=== PATIENT | male | born 1995 | race Caucasian/White ===

== ENCOUNTER 2017-10-24 11:09 | Emergency (ER) | payer OTHER ==
[2017-10-24 12:05] LABS: Basophils # (A) 0.1 k/uL (0-0.2); Basophils % (A) 1 %; Eosinophils # (A) 0.1 k/uL (0-0.7); Eosinophils % (A) 1 %; HCT 44.3 % (39.0-53.0); HGB 16.2 gm/dL (13.0-17.5); Hyperchromasia Slight; Lymphocytes # (A) 1.9 k/uL (1.0-4.8); Lymphocytes % (A) 25 %; MCH 30.1 pg (25.0-35.0); MCHC 36.6 g/dL (31.0-37.0); MCV 82.2 fL (80.0-100.0); Mean Platelet Volume 6.8; Monocytes # (A) 0.3 k/uL (0-1.0); Monocytes % (A) 4 %; Neutrophils # (A) 5.1 k/uL (1.3-7.7); Neutrophils % (A) 67 %; Platelet Count 229 k/uL (150-450); RBC 5.39 m/uL (4.30-5.90); RDW 12.8 % (11.5-15.5); WBC 7.5 k/uL (4.0-11.0)
[2017-10-24 12:15] LABS: ALT 21 U/L (21-72); AST 18 U/L (17-59); Albumin 5.1 g/dL (3.5-5.0); Alkaline Phosphatase 80 U/L (38-126); Amylase 59 U/L (30-110); Anion Gap 16 mmol/L; Blood Urea Nitrogen 15 mg/dL (9-20); Calcium 10.1 mg/dL (8.4-10.2); Carbon Dioxide 26 mmol/L (22-30); Chloride 102 mmol/L (98-107); Glucose 89 mg/dL (74-99); Lipase 59 U/L (23-300); Potassium 4.2 mmol/L (3.5-5.1); Sodium 144 mmol/L (137-145); Total Bilirubin 1.6 mg/dL (0.2-1.3); Total Protein 8.2 g/dL (6.3-8.2)
[2017-10-24] MEDS ORDERED: ONDANSETRON 4 MG/2 ML VIAL IVP STA (12:56)
[2017-10-24] MEDS ORDERED: KETOROLAC 30 MG/ML 1 ML VIAL IVP STA (12:56)
[2017-10-24] MEDS ORDERED: SODIUM CHLORIDE 0.9% 1,000 ML IV STA (12:56)
[2017-10-24] MEDS ORDERED: RX INFO: IV CONTRAST WAS GIVEN 1 EACH MISC MISCELLANE PRN (12:56)
[2017-10-24 13:20] VITALS: RESP 18
[2017-10-24 13:28] LABS: Appearance,Urine Clear (Clear); Bilirubin,Urine Negative (Negative); Blood,Urine Negative (Negative); Color,Urine Yellow; Glucose,Urine (UA) Negative (Negative); Ketones,Urine 1+ (Negative); Leukocyte Esterase,Urine Trace (Negative); Mucus,Urine Few /hpf; Nitrite,Urine Negative (Negative); PH, Urine 5.5 (5.0-8.0); Protein,Urine Trace (Negative); RBC,Urine 1 /hpf (0-5); Specific Gravity,Urine 1.029 (1.001-1.035); Squamous Epithelial Cell,Urine 1 /hpf (0-4); WBC,Urine 7 /hpf (0-5)
--- NOTE | 2017-10-24 14:03 | CT ---
EXAMINATION TYPE: CT abdomen pelvis w con DATE OF EXAM: 10/24/2017 COMPARISON: NONE HISTORY: Lower abdominal pain with nausea and vomiting CT DLP: 733 mGycm, Automated Exposure Control for Dose Reduction was Utilized. CONTRAST: CT scan of the abdomen and pelvis is performed without oral but with IV Contrast, patient injected wi th 100 mL of Isovue 300. FINDINGS: LUNG BASES: No significant abnormality is appreciated. LIVER/GB: No significant abnormality is appreciated. PANCREAS: No significant abnormality is seen. SPLEEN: Spleen is upper limits of normal in size measuring 12.9 cm long axis coronal image 37. ADRENALS: No significant abnormality is seen. KIDNEYS: There is symmetric cortical medullary uptake and excretion from both kidneys without evidenc e of hydronephrosis bilaterally. Bladder is poorly distended and thus suboptimally evaluated. Bladder wall thickness measures up to 10 mm coronal image 27. Cannot exclude cystitis, correlate clinically. BOWEL: Evaluation bowel is suboptimal secondary to lack of enteric contrast. There is no suspicious s mall or large bowel dilatation. There is marked fecal prominence in the rectum. Appendix is not defin itively seen but likely within normal limits from cecum in the right lower quadrant seen best near co remington image 36. There is mild haziness or fat stranding in the anterior right pelvis near axial image 60 without well-formed fluid collection. PROSTATE/SEMINAL VESICLES: No gross abnormality seen. LYMPH NODES: No greater than 1cm abdominal or pelvic lymph nodes are appreciated. OSSEOUS STRUCTURES: No significant abnormality is seen. OTHER: No significant additional abnormality is seen. IMPRESSION: 1. No bowel obstruction is present. Severe rectal fecal stasis or fecal impaction with significant lo michi mass effect on pelvic structures. Cannot exclude cystitis, correlate clinically.
[2017-10-24] MEDS ORDERED: DOCUSATE 283 MG/5 ML ENEMA RECTAL STA (14:24)
[2017-10-24] MEDS ORDERED: MAGNESIUM CITRATE 296 ML BOTTLE PO ONE (14:24)
--- NOTE | 2017-10-24 14:25 | ED ---
Abdominal Pain HPI - General Chief Complaint: Abdominal Pain Stated Complaint: abdominal pain, nausea, vomiting Time Seen by Provider: 10/24/17 12:30 Source: patient, RN notes reviewed, old records reviewed Mode of arrival: ambulatory Limitations: no limitations - History of Present Illness Initial Comments: This patient is a 21-year-old male presents [facility] PCP for rule out urinary symptoms or appendicitis. Sent here for computed tomography scan rice PCP. Patient states that he's had nausea and denies any fever or chills. Did have a bowel movement yesterday. Patient relates that he's had no changes in his urination. He feels a pressure and pain on the lower pelvis and right lower quadrant. - Related Data Home Medications Medication Instructions Recorded Confirmed Acetaminophen [Tylenol Extra 500 mg PO DAILY PRN 10/24/17 10/24/17 Strength] Previous Rx's Medication Instructions Recorded Bisacodyl [Dulcolax] 10 mg PO ONCE #20 tablet. 10/24/17 Polyethylene Glycol 3350 [Miralax] 17 gm PO DAILY #30 packet 10/24/17 Allergies Allergy/AdvReac Type Severity Reaction Status Date / Time No Known Allergies Allergy Verified 10/24/17 12:45 Review of Systems ROS Statement: Those systems with pertinent positive or pertinent negative responses have been documented in the HPI. ROS Other: All systems not noted in ROS Statement are negative. Past Medical History Past Medical History: Asthma History of Any Multi-Drug Resistant Organisms: None Reported Past Surgical History: Tonsillectomy Additional Past Surgical History / Comment(s): TESTICLE SURGERY Past Anesthesia/Blood Transfusion Reactions: No Reported Reaction Past Psychological History: No Psychological Hx Reported Smoking Status: Never smoker Past Alcohol Use History: Occasional Past Drug Use History: None Reported - Past Family History Mother Family Medical History: Cancer General Exam - General Exam Comments Initial Comments: 21-year-old male. Alert. No acute distress. Limitations: no limitations General appearance: alert, in no apparent distress Head exam: Present: atraumatic, normocephalic, normal inspection Eye exam: Present: normal appearance, PERRL, EOMI. Absent: scleral icterus, conjunctival injection, periorbital swelling ENT exam: Present: normal exam, mucous membranes moist Neck exam: Present: normal inspection. Absent: tenderness, meningismus, lymphadenopathy Respiratory exam: Present: normal lung sounds bilaterally. Absent: respiratory distress, wheezes, rales, rhonchi, stridor Cardiovascular Exam: Present: regular rate, normal rhythm, normal heart sounds. Absent: systolic murmur, diastolic murmur, rubs, gallop, clicks GI/Abdominal exam: Present: soft, tenderness (Suprapubic and right lower quadrant tenderness.), normal bowel sounds. Absent: distended, guarding, rebound, rigid Extremities exam: Present: normal inspection, full ROM, normal capillary refill. Absent: tenderness, pedal edema, joint swelling, calf tenderness Back exam: Present: normal inspection Neurological exam: Present: alert, oriented X3, CN II-XII intact Course Vital Signs 10/24/17 10/24/17 10/24/17 11:11 13:15 15:26 Temperature 98.1 F Pulse Rate 103 H 78 83 Respiratory 20 18 18 Rate Blood Pressure 144/82 131/82 140/73 O2 Sat by Pulse 100 98 98 Oximetry Medical Decision Making - Medical Decision Making 21-year-old male with history of lower abdominal pain for 2 days. Has been having bowel movements. Sent here for further evaluation with PCP for CAT scan. Patient's labwork was reviewed and unremarkable. UA is negative for infection. CT abdomen and pelvis completed. Showed significant amount of fecal attention likely impaction. Causing pressure on the pelvic structures. Patient reports he did have bowel movement. Patient has encopresis. - Lab Data Result diagrams: 10/24/17 11:30 10/24/17 11:30 Lab Results 10/24/17 10/24/17 10/24/17 Range/Units 11:30 11:30 13:02 WBC 7.5 (4.0-11.0) k/uL RBC 5.39 (4.30-5.90) m/uL Hgb 16.2 (13.0-17.5) gm/dL Hct 44.3 (39.0-53.0) % MCV 82.2 (80.0-100.0) fL MCH 30.1 (25.0-35.0) pg MCHC 36.6 (31.0-37.0) g/dL RDW 12.8 (11.5-15.5) % Plt Count 229 (150-450) k/uL Neutrophils % 67 % Lymphocytes % 25 % Monocytes % 4 % Eosinophils % 1 % Basophils % 1 % Neutrophils # 5.1 (1.3-7.7) k/uL Lymphocytes # 1.9 (1.0-4.8) k/uL Monocytes # 0.3 (0-1.0) k/uL Eosinophils # 0.1 (0-0.7) k/uL Basophils # 0.1 (0-0.2) k/uL Hyperchromasia Slight Sodium 144 (137-145) mmol/L Potassium 4.2 (3.5-5.1) mmol/L Chloride 102 (98-107) mmol/L Carbon Dioxide 26 (22-30) mmol/L Anion Gap 16 mmol/L BUN 15 (9-20) mg/dL Creatinine 0.90 (0.66-1.25) mg/dL Est GFR (CKD-EPI)AfAm >90 (>60 ml/min/1.73 sqM) Est GFR (CKD-EPI)NonAf >90 (>60 ml/min/1.73 sqM) Glucose 89 (74-99) mg/dL Calcium 10.1 (8.4-10.2) mg/dL Total Bilirubin 1.6 H (0.2-1.3) mg/dL AST 18 (17-59) U/L ALT 21 (21-72) U/L Alkaline Phosphatase 80 (38-126) U/L Total Protein 8.2 (6.3-8.2) g/dL Albumin 5.1 H (3.5-5.0) g/dL Amylase 59 (30-110) U/L Lipase 59 (23-300) U/L Urine Color Yellow Urine Appearance Clear (Clear) Urine pH 5.5 (5.0-8.0) Ur Specific Pope 1.029 (1.001-1.035) Urine Protein Trace H (Negative) Urine Glucose (UA) Negative (Negative) Urine Ketones 1+ H (Negative) Urine Blood Negative (Negative) Urine Nitrite Negative (Negative) Urine Bilirubin Negative (Negative) Urine Urobilinogen 2.0 (<2.0) mg/dL Ur Leukocyte Esterase Trace H (Negative) Urine RBC 1 (0-5) /hpf Urine WBC 7 H (0-5) /hpf Ur Squamous Epith Cells 1 (0-4) /hpf Urine Mucus Few H (None) /hpf - Radiology Data Radiology results: report reviewed CT shows no evidence of bowel obstruction. There is severe rectal fecal stasis or fecal impaction with significant mass effect on pelvic structures. Cannot exclude cystitis. Correlate clinically. Read by Dr. farmer. Disposition Clinical Impression: Constipation Disposition: HOME SELF-CARE Condition: Good Instructions: Constipation (ED), Obstipation (ED) Additional Instructions: Patient needs to go home and drink plenty of water, drink approximately 1-2 L of water to help with hydration. Patient should take the stool softeners. Follow up with primary care provider. Return to the emergency department if any alarming signs or symptoms occur. Prescriptions: Bisacodyl [Dulcolax] 10 mg PO ONCE #20 tablet. Polyethylene Glycol 3350 [Miralax] 17 gm PO DAILY #30 packet Is patient prescribed a controlled substance at d/c from ED?: No If prescribed controlled substance>3 days was MAPS reviewed?: No When asked, does pt state using other controlled substances?: No Referrals: Melvin Nichole MD [Primary Care Provider] - 1-2 days Time of Disposition: 16:12
[2017-10-24] MEDS ORDERED: BISACODYL 5 MG TABLET.DR PO STA (16:16)
[2017-10-24] MEDS ORDERED: SENNOSIDES 8.6 MG TAB PO STA (16:16)
[2017-10-24 16:40] VITALS: BP 127/75; PULSE 95; TEMP 98
== END 2017-10-24 16:40 | disposition home or self-care (01) ==
LOC: EC 11:09
DX: K59.00 Constipation, unspecified (principal); R10.31 Right lower quadrant pain; R11.2 Nausea with vomiting, unspecified
CPT/HCPCS: 36415; 80053; 82150; 83690; 85025; 81001; 74177; 99284; 96374; 96375; 96361 ×2; J2405; J1885; Q9967

== ENCOUNTER → 2017-10-28 | Outpatient (CLI) | payer SELFPAY ==
--- NOTE | 2017-10-28 12:45 | XR ---
Abdomen HISTORY: Constipation, fecal impaction Single frontal view of the abdomen and correlated to CT abdomen pelvis 10/24/2017 Retained fecal debris noted at the level of the rectum. No evident obstruction or pneumoperitoneum. N o pathologic calcification evident. Lung bases are clear. IMPRESSION: Correlate for fecal impaction, stasis.
== END | disposition home or self-care (01) ==
LOC: RADXRMAIN 09:47
PROVIDERS: ATTEND Family Medicine
DX: K56.41 Fecal impaction (principal)
CPT/HCPCS: 74018

== ENCOUNTER 2017-11-15 11:52 | Emergency (ER) | payer OTHER ==
[2017-11-15 12:09] VITALS: BP 132/76; PULSE 77; RESP 15; TEMP 98.1
--- NOTE | 2017-11-15 12:37 | XR ---
EXAMINATION TYPE: XR toes LT DATE OF EXAM: 11/15/2017 COMPARISON: NONE HISTORY: Infected toenail for 2 months with increasing pain since yesterday after injury. TECHNIQUE: 3 views of left first toe were acquired FINDINGS: No acute fracture or dislocation is seen. The joint spaces are preserved. There is focal so ft tissue prominence near first interphalangeal joint along dorsal surface without radiodense soft ti ssue foreign body seen. IMPRESSION: No acute fracture or dislocation in the first digit of left toe is identified.
--- NOTE | 2017-11-15 12:39 | ED ---
General Adult HPI - General Chief complaint: Extremity Injury, Lower Stated complaint: infected big toe/Toe injury Time Seen by Provider: 11/15/17 12:10 Source: patient, RN notes reviewed Mode of arrival: ambulatory Limitations: no limitations - History of Present Illness Initial comments: 21-year-old male presents to the emergency determine for a chief complaint of left great toe infection and injury. Patient states he has had an infected toe for the past 2 months. Patient states he dropped a 75 pound pallet on the toe yesterday which has caused the pain to increase. Patient has not tried anything for the pain. Patient denies pain anywhere else in the foot or other toes. Patient denies any other injuries. Patient did not hit his head. Patient denies any fevers or chills at home. Patient denies any spreading or streaking redness up from the toe. Patient has no other complaints at this time including shortness of breath, chest pain, abdominal pain, nausea or vomiting, headache, or visual changes. - Related Data Home Medications Medication Instructions Recorded Confirmed Acetaminophen [Tylenol Extra 500 mg PO DAILY PRN 10/24/17 10/24/17 Strength] Previous Rx's Medication Instructions Recorded Bisacodyl [Dulcolax] 10 mg PO ONCE #20 tablet. 10/24/17 Polyethylene Glycol 3350 [Miralax] 17 gm PO DAILY #30 packet 10/24/17 Ibuprofen [Motrin] 600 mg PO Q8HR PRN #20 tab 11/15/17 Sulfamethox-Tmp 800-160Mg [Bactrim 2 tab PO Q12HR 10 Days #40 tab 11/15/17 DS 800-160 mg] Allergies Allergy/AdvReac Type Severity Reaction Status Date / Time No Known Allergies Allergy Verified 11/15/17 12:09 Review of Systems ROS Statement: Those systems with pertinent positive or pertinent negative responses have been documented in the HPI. ROS Other: All systems not noted in ROS Statement are negative. Past Medical History Past Medical History: Asthma History of Any Multi-Drug Resistant Organisms: None Reported Past Surgical History: Tonsillectomy Additional Past Surgical History / Comment(s): TESTICLE SURGERY Past Anesthesia/Blood Transfusion Reactions: No Reported Reaction Past Psychological History: No Psychological Hx Reported Smoking Status: Never smoker Past Alcohol Use History: Occasional Past Drug Use History: None Reported - Past Family History Mother Family Medical History: Cancer General Exam Limitations: no limitations General appearance: alert, in no apparent distress (Sitting up in bed pleasant, cooperative, and interactive) Head exam: Present: atraumatic, normocephalic, normal inspection Eye exam: Present: normal appearance, PERRL, EOMI. Absent: scleral icterus, conjunctival injection, periorbital swelling, periorbital tenderness ENT exam: Present: normal oropharynx, normal external ear exam Neck exam: Present: normal inspection, full ROM. Absent: tenderness, meningismus, lymphadenopathy Respiratory exam: Present: normal lung sounds bilaterally. Absent: respiratory distress, wheezes, rales, rhonchi, stridor Cardiovascular Exam: Present: regular rate, normal rhythm, normal heart sounds. Absent: systolic murmur, diastolic murmur, rubs, gallop, clicks Extremities exam: Present: full ROM (Full range of motion of the left great toe) , tenderness (Tenderness around the nail of the left great toe. Elsewhere in the left great toe. No tenderness in the left foot or other digits.), normal capillary refill (cap refill less than 2 seconds and pedal pulse 2+.), other ( There is mild swelling along the proximal nailfold of the left great toe along with mild erythema consistent with proximal paronychia. No cellulitic changes such as spreading redness. No streaking redness up the great toe. No areas of fluctuance that will allow for drainage either along the lateral or proximal borders of the nail.). Absent: calf tenderness (No tenderness in the calf. No increased redness, swelling, or warmth noted in the left calf. Negative Homans sign.) Course Vital Signs 11/15/17 12:06 Temperature 98.1 F Pulse Rate 77 Respiratory 15 Rate Blood Pressure 132/76 O2 Sat by Pulse 100 Oximetry Medical Decision Making - Medical Decision Making 21-year-old male presents to the emergency department for chief complaint of left great toe infection x 2 months with increased pain due to injury yesterday. Patient was at work when he dropped a 75 lb pallet on his left toe yesterday and has had increased pain since that time. Patient states he is able to walk on it but it is painful. No other injury sustained. Afebrile in the emergency department. No fevers at home. Patient has full range of motion of the left great toe and left foot. Patient has a tenderness along the nail of the left great toe. Neurovascular intact. There is localized swelling and erythema around the proximal nail fold on the left great toe. No areas of fluctuance noted for drainage. No cellulitic changes or streaking redness. XR shows no fractures or dislocations in the left great toe. Patient likely has a proximal nailfold paronychia of the left great toe. He will be given Bactrim for treatment. He is to monitor for any spreading redness, streaking redness, or other worsening symptoms and to return if they occur. Otherwise he is to follow up with primary care in 1-2 days. Disposition Clinical Impression: Paronychia Disposition: HOME SELF-CARE Condition: Good Instructions: Paronychia (ED) Additional Instructions: Please take antibiotic as directed. Take Motrin or Tylenol for pain. Please soaked the toe in warm water or do warm compresses every few hours. Follow-up with primary care provider in one to 2 days. Return to the emergency department if you have any worsening symptoms or signs of infection including spreading redness or streaking redness up the toe or fever. Prescriptions: Ibuprofen [Motrin] 600 mg PO Q8HR PRN #20 tab PRN Reason: Pain Sulfamethox-Tmp 800-160Mg [Bactrim DS 800-160 mg] 2 tab PO Q12HR 10 Days #40 tab Is patient prescribed a controlled substance at d/c from ED?: No Referrals: Melvin Nichole MD [Primary Care Provider] - 1-2 days Time of Disposition: 12:54
== END 2017-11-15 13:14 | disposition home or self-care (01) ==
LOC: EC 11:52
DX: L03.032 Cellulitis of left toe (principal); W20.8XXA Other cause of strike by thrown, projected or falling object, initial encounter; Y92.69 Other specified industrial and construction area as the place of occurrence of the external cause; Y99.0 Civilian activity done for income or pay
CPT/HCPCS: 99283